=== PATIENT | female | born 1980 | race Caucasian/White ===

== ENCOUNTER 2020-04-20 13:14 | Outpatient (CLI) | payer OTHER ==
--- NOTE | 2020-04-20 15:15 | Ultrasound Report ---
Limited OB Ultrasound HISTORY: VAG BLEEDING. TECHNIQUE: Grayscale and color imaging performed. COMPARISON: None FINDINGS: Transabdominal and endovaginal imaging was performed. The uterus measures 10.5 x 5.5 x 7.5 cm with endometrial echocomplex measuring 1.4 cm. Probable small fibroid noted along the posterior uterine body measuring 1.5 cm. Ovaries are both normal in size and appearance with tiny follicles. Preserved blood flow. No significant pelvic free fluid. No intrauterine gestation is identified on this exam. IMPRESSION: 1. No intrauterine gestation identified. Correlate with beta hCG level and if needed continued ultras ound follow-up. 2. Small uterine fibroid. Signer Name: Collins Peterson MD Signed: 04/20/2020 3:11 PM Workstation Name: [id number]
== END 2020-04-20 13:15 | disposition home or self-care (01) ==
LOC: US 13:14
PROVIDERS: ATTEND Nurse Practitioner Family
DX: D25.9 Leiomyoma of uterus, unspecified (principal); N91.1 Secondary amenorrhea; N89.9 Noninflammatory disorder of vagina, unspecified; N93.9 Abnormal uterine and vaginal bleeding, unspecified
CPT/HCPCS: 76801; 76817